=== PATIENT | male | born 2000 ===

== ENCOUNTER 2025-02-19 06:13 | Day surgery (SDC) | payer BC ==
[~2025-02-19] VITALS: Ht 175.3 cm; Wt 77.4 kg
[~2025-02-19 06:13] MED LIST: Tranexamic Acid 100 ML IV ONE
[2025-02-19] MEDS ORDERED: DIVA500EC PO (06:29)
[2025-02-19] MEDS ORDERED: IBUP200 (06:30)
[2025-02-19] MEDS ORDERED: EPINEPhrine HCl 1 MG / ML 30ML Vial ONE (06:53)
[2025-02-19] MEDS ORDERED: Lidocaine 2%-Epineph 1:200000 20 ML SDV ONE (06:54)
[2025-02-19] MEDS ORDERED: Midazolam HCl 1MG / ML 2ML Vial ONE (06:57)
[2025-02-19] MEDS ORDERED: FentaNYL Citrate 50 MCG/ML 2 ML Injection ONE (06:57)
[2025-02-19] MEDS ORDERED: Dexamethasone Sod Phos 10 MG/ML 1ML VIAL ONE (07:09)
[2025-02-19] MEDS ORDERED: Sugammadex Sodium 200 MG/2ML SDV (100 MG/ML) ONE (07:09)
[2025-02-19] MEDS ORDERED: Ondansetron HCl 2 MG / ML 2ML Vial ONE (07:09)
--- NOTE | 2025-02-19 08:54 | NUR ---
02/19/25 0854 Maria Elena Mcclellan RN ASSISTED PT TO RECLINER. VSS. PT DENIES DIZZINESS/NAUSEA/PAIN AT THIS TIME.
== END 2025-02-19 08:51 | disposition home or self-care (01) ==
LOC: ORSCSDS 06:13
PROVIDERS: Otolaryngology
PROC: 09TL8ZZ Resection of Nasal Turbinate, Via Natural or Artificial Opening Endoscopic (ICD-10-PCS; principal; 2025-02-19 07:30)
DX: J34.3 Hypertrophy of nasal turbinates (principal); J30.89 Other allergic rhinitis; F17.210 Nicotine dependence, cigarettes, uncomplicated; R56.9 Unspecified convulsions
CPT/HCPCS: J0165; J1100; J2250; J2405; J2704; J3010; J7120